=== PATIENT | female | born 1970 | race Caucasian/White ===

== ENCOUNTER → 2017-07-24 | Outpatient (CLI) | payer OTHER ==
--- NOTE | 2017-07-28 10:30 | MM ---
Reason for exam: screening (asymptomatic). Last mammogram was performed 8 years and 7 months ago. History: Patient history of other cancer and had first child at age 35. Took hormonal contraceptives for 18 years. Physical Findings: A clinical breast exam by your physician is recommended on an annual basis and results should be correlated with mammographic findings. MG 3D Screening Mammo W/Cad Bilateral CC and MLO view(s) were taken. Prior study comparison: January 01, 2009, bilateral digital screening mammogram. The breast tissue is heterogeneously dense. This may lower the sensitivity of mammography. Focal asymmetry upper left MLO view 7cm from nipple. ASSESSMENT: Incomplete: need additional imaging evaluation, BI-RAD 0 RECOMMENDATION: Special view mammogram of the left breast. If lesion persists on supplemental views, image directed ultrasound is recommended. [facility] will attempt to contact patient to return for supplemental views and ultrasound if indicated.
== END | disposition home or self-care (01) ==
LOC: RADMAMWWP 10:19
PROVIDERS: ATTEND Family Medicine
DX: Z12.31 Encounter for screening mammogram for malignant neoplasm of breast (principal)
CPT/HCPCS: 77063; 77067

== ENCOUNTER → 2017-08-03 | Outpatient (CLI) | payer OTHER ==
--- NOTE | 2017-08-03 09:42 | MM ---
Reason for exam: additional evaluation requested from abnormal screening. Last mammogram was performed less than 1 month ago. History: Patient history of other cancer and had first child at age 35. Took hormonal contraceptives for 18 years. Physical Findings: Nurse did not find any significant physical abnormalities on exam. MG 3D Work Up W/Cad LT LM and spot compression MLO view(s) were taken of the left breast. Prior study comparison: July 24, 2017, bilateral MG 3d screening mammo w/cad. January 01, 2009, bilateral digital screening mammogram. There are scattered fibroglandular densities. The questioned central asymmetry disperses on additional views. These results were verbally communicated with the patient and result sheet given to the patient on 08/03/17. ASSESSMENT: Negative, BI-RAD 1 RECOMMENDATION: Return to routine screening mammogram schedule for both breasts.
== END | disposition home or self-care (01) ==
LOC: RADMAMWWP 08:47
PROVIDERS: ATTEND Family Medicine
DX: R92.8 Other abnormal and inconclusive findings on diagnostic imaging of breast (principal)
CPT/HCPCS: 77065; G0279

== ENCOUNTER → 2018-07-26 | Outpatient (CLI) | payer OTHER ==
--- NOTE | 2018-07-27 09:13 | MM ---
Reason for exam: screening (asymptomatic). Last mammogram was performed 1 year ago. History: Patient history of other cancer and had first child at age 35. Took hormonal contraceptives for 18 years. Physical Findings: A clinical breast exam by your physician is recommended on an annual basis and results should be correlated with mammographic findings. MG Screening Mammo w CAD Bilateral CC and MLO view(s) were taken. Prior study comparison: August 03, 2017, left breast MG 3d work up w/cad LT. July 24, 2017, bilateral MG 3d screening mammo w/cad. The breast tissue is heterogeneously dense. This may lower the sensitivity of mammography. Stable benign calcifications. There is no discrete abnormality. No significant changes when compared with prior studies. ASSESSMENT: Benign, BI-RAD 2 RECOMMENDATION: Routine screening mammogram of both breasts in 1 year.
== END | disposition home or self-care (01) ==
LOC: RADMAMWWP 14:28
PROVIDERS: ATTEND Family Medicine
DX: Z12.31 Encounter for screening mammogram for malignant neoplasm of breast (principal)
CPT/HCPCS: 77067

== ENCOUNTER → 2021-12-18 | Outpatient (CLI) | payer OTHER ==
--- NOTE | 2021-12-18 10:32 | US ---
EXAMINATION TYPE: US extremity nonvasc mass LT DATE OF EXAM: 12/18/2021 COMPARISON: NONE CLINICAL HISTORY: R22.9 SKIN MASS, LUMP AND SWELLING. Patient states feeling a lump on left upper inn er thigh x 1 week. Doesn't hurt to touch. Feels superficial. Area of concern scanned. Oval isoechoic area seen, nonvascular = 1.7 x 1.5 x 0.6 cm IMPRESSION: Findings felt to reflect lipoma.
== END | disposition home or self-care (01) ==
LOC: RADUSWWP 09:34
PROVIDERS: ATTEND Family Medicine
DX: R22.9 Localized swelling, mass and lump, unspecified (principal)

== ENCOUNTER → 2021-12-20 | Outpatient (CLI) | payer OTHER ==
--- NOTE | 2021-12-24 09:45 | MM ---
Reason for Exam: Screening (asymptomatic). Last mammogram was performed 3 year(s) and 5 month(s) ago. Patient History: Menarche at age 10. First Full-Term at age 35. Late child-bearing (after 30). Other cancer. Hormonal Contraceptives for 18 years until age 33. Risk Values: Jacqueline 5 year model risk: 1.5%. NCI Lifetime model risk: 13.0%. Prior Study Comparison: 07/24/2017 Bilateral Screening Mammogram, [facility]. 08/03/2017 Left Diagnostic Mammogram, [facility]. 07/26/2018 Bilateral Screening Mammogram, [facility]. Tissue Density: The breast tissue is heterogeneously dense. This may lower the sensitivity of mammography. Findings: Analyzed By CAD. Pattern appears stable. Chronic nodularity is present No suspicious groups of microcalcifications, spiculated or lobular masses, architectural distortion or other secondary signs of malignancy are mammographically apparent. Overall Assessment: Benign, BI-RAD 2 Management: Screening Mammogram of both breasts in 1 year. A negative mammogram report should not preclude additional follow up of suspicious palpable abnormalities. Patient should continue monthly self breast exam. A clinical breast exam by your physician is recommended on an annual basis and results should be correlated with mammographic findings. Electronically signed and approved by: Tony Louie D.O. Radiologis
== END | disposition home or self-care (01) ==
LOC: RADMAMWWP 14:32
PROVIDERS: ATTEND Family Medicine
DX: Z12.31 Encounter for screening mammogram for malignant neoplasm of breast (principal); Z85.89 Personal history of malignant neoplasm of other organs and systems
CPT/HCPCS: 77063; 77067

== ENCOUNTER → 2023-01-20 | Outpatient (CLI) | payer OTHER | END | disposition home or self-care (01) | LOC: RADMAMWWP 14:41 | PROVIDERS: ATTEND Family Medicine | DX: Z53.9 Procedure and treatment not carried out, unspecified reason (principal) ==

== ENCOUNTER → 2023-01-20 | Outpatient (CLI) | payer OTHER ==
--- NOTE | 2023-01-20 15:43 | US ---
EXAMINATION TYPE: US extremity nonvasc mass LT DATE OF EXAM: 01/20/2023 COMPARISON: NONE CLINICAL INDICATION: Female, 52 years old with history of R22.32 LUE; patient reports recent weight l oss and detecting a palpable finding along the lateral aspect of upper forearm 4 months ago. TECHNIQUE: Targeted ultrasound along the lateral aspect of the proximal left forearm at the patient' s palpable site. FINDINGS: There is a multilocular cystic structure at the palpable site embedded within the common extensor mus culature. This measures 2.5 x 1.5 x 0.8 cm. No internal vascularity or suspicious soft tissue nodular ity. The lateral elbow was also scanned and shows no evident tear of the common extensor tendon origin. IMPRESSION: Multilocular cystic structure measuring 2.5 x 1.5 x 0.8 cm located within the common extensor muscula ture of the upper forearm. Exact etiology is unclear. Possible intramuscular ganglion cyst. Some type of mesenchymal tumor such as a myxoma is also a differential consideration. Recommend clinical surve illance. If the area becomes symptomatic or any growth is noted, consider surgical evaluation and/or MRI.
--- NOTE | 2023-01-21 08:35 | MM ---
Reason for Exam: Screening (asymptomatic). Last mammogram was performed 1 year(s) and 1 month(s) ago. Patient History: Menarche at age 10. First Full-Term at age 35. Late child-bearing (after 30). Patient has history of breast feeding. Hormonal Contraceptives for 18 years until age 33. Last menstrual period: 10/25/2014 Risk Values: Jacqueline 5 year model risk: 1.6%. NCI Lifetime model risk: 12.8%. Prior Study Comparison: 08/03/2017 Left Diagnostic Mammogram, [facility]. 07/26/2018 Bilateral Screening Mammogram, [facility]. 12/20/2021 Bilateral MG 3D screening mammo w/cad, [facility]. Tissue Density: The breast tissue is heterogeneously dense. This may lower the sensitivity of mammography. Findings: Analyzed By CAD. There is no suspicious group of microcalcifications or new suspicious mass. There is no suspicious group of microcalcifications or new suspicious mass. Benign-appearing calcifications bilaterally. Overall Assessment: Benign, BI-RAD 2 Management: Screening Mammogram of both breasts in [address] [facility] will attempt to contact patient to return for supplemental views and ultrasound if indicated. Patient should continue monthly self-breast exams. A clinical breast exam by your physician is recommended on an annual basis. This exam should not preclude additional follow-up of suspicious palpable abnormalities. Note on Jacqueline scores and lifetime risk: 1. A Jacqueline score greater than 3% is considered moderate risk. If this is the case, consider specialist referral to assess eligibility for a risk reducing agent. 2. If overall lifetime risk for the development of breast cancer is 20% or higher, the patient may qualify for future screening with alternating mammogram and breast MRI. Electronically signed and approved by: Skip Ramesh DO
== END | disposition home or self-care (01) ==
LOC: RADUSWWP 14:44
PROVIDERS: ATTEND Family Medicine
DX: Z12.31 Encounter for screening mammogram for malignant neoplasm of breast (principal); M85.632 Other cyst of bone, left forearm; R22.32 Localized swelling, mass and lump, left upper limb
CPT/HCPCS: 77063; 77067

== ENCOUNTER → 2023-02-21 | Outpatient (CLI) | payer OTHER ==
--- NOTE | 2023-02-28 20:04 | MR ---
EXAMINATION TYPE: MR forearm LT wo/w con DATE OF EXAM: 02/21/2023 COMPARISON: Ultrasound left forearm 01/20/2023 HISTORY: Left forearm mass with marker placed, pain, and numbness in left arm. Multiplanar, multisequence images of the left forearm were acquired without and with contrast. FINDINGS: BONES/MARROW: Normal bone marrow signal. SOFT TISSUES: Within the proximal common extensor muscular compartment, predominantly interposed betw een the supinator muscle and the extensor digitorum muscle, there is a intermediate T1, hyperintense T2 nonenhancing multi loculated structure with associated split fat sign; the structure measures appr oximately 1.4 x 0.9 x 2.3 cm. No anatomic variant. No bursal distention. No fluid collection. NEUROVASCULAR: Grossly normal. OTHER: Normal. No mass. No lymphadenopathy. IMPRESSION: Nonenhancing ovoid structure along the course of the posterior interosseous nerve. 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 Differential diagnosis includes intramuscular myxoma.
== END | disposition home or self-care (01) ==
LOC: RADMRIMAIN 07:39
PROVIDERS: ATTEND Family Medicine
DX: R22.32 Localized swelling, mass and lump, left upper limb (principal)
CPT/HCPCS: 73220; A9585